=== PATIENT | female | born 2000 | race Caucasian/White ===

== ENCOUNTER 2020-04-08 10:00 | Emergency (ER) | payer OTHER, SELFPAY ==
--- NOTE | ~2020-04-08 | CT_ITS ---
EXAMINATION: CT abdomen pelvis wo con DATE: 04/08/2020 11:33 INDICATION: Low abdominal pain. Vomiting. TECHNIQUE: Computed tomography (CT) of the abdomen and pelvis was performed without intravenous contr ast. Automated exposure control and iterative reconstruction technique were employed. Exam dose: 376 .18 mGy-cm total exam DLP. COMPARISON: None. FINDINGS: The lung bases are clear. Normal heart size. No pericardial or pleural effusion. The liver, gallbladder, bile ducts, pancreas, pancreatic duct, spleen, adrenal glands and kidneys are unremarkable on this limited noncontrast examination. Normal caliber of the abdominal aorta. No intraperitoneal or retroperitoneal or pelvic mass lesion or adenopathy or ascites. Normal appendix. There is a prominent amount of fecal material within the rectum and colon but no bow el obstruction, bowel wall thickening, pneumatosis or intraperitoneal free air. Included skeletal structures are unremarkable. IMPRESSION: Prominent amount fecal material in rectum and colon; no evidence of bowel obstruction Reviewed, dictated and finalized at [facility]. Reviewed, dictated and finalized at [facility]. IMPRESSION: Prominent amount fecal material in rectum and colon; no evidence o f bowel obstruction
[2020-04-08 10:24] VITALS: BP 120/74; PULSE 70; RESP 18; TEMP 36.6; O2SAT 100
[2020-04-08] MEDS: SODIUM CHLORIDE 0.9% IV 1,000 ML 999 ML IV CONT (10:49)
[2020-04-08] MEDS: ONDANSETRON INJ 4 MG/2 ML VIAL IV PUSH (10:50)
[2020-04-08] MEDS: FAMOTIDINE 20 MG/2 ML VIAL IV PUSH (10:50)
--- NOTE | 2020-04-08 10:54 | ED.ABDPAIN ---
HPI - Abdominal Pain General Chief Complaint: Abdominal Pain <Sam Prabhakar PA-C - Last Filed: 04/08/20 12:17> Stated Complaint: abdominal pain/vomiting <MOHIT Antonio Last Filed: 04/08/20 12:17> Time Seen by Provider: 04/08/20 10:14 <Sam Prabhakar PA-C - Last Filed: 04/08/20 12:17> Source: patient and family <MOHIT Antonio Last Filed: 04/08/20 12:17> Mode of arrival: ambulatory <Sam Prabhakar PA-C - Last Filed: 04/08/20 12:17> Limitations: no limitations <MOHIT Antonio Last Filed: 04/08/20 12:17> History of Present Illness HPI narrative: Patient is a 20-year-old female who presents to emergency department for evaluation of lower abdominal pain that began yesterday has been taking Tylenol with minimal improvement notes that she is currently on her period and has had bad cramps before but this is different the pain goes through to the back and also had about 7 episodes of emesis today denies concern for STD or any vaginal discharge patient denies any fever chills <Sam Prabhakar PA-C - Last Filed: 04/08/20 12:17> Related Data Allergies/Adverse Reactions: Allergies Allergy/AdvReac Type Severity Reaction Status Date / Time nitrofurantoin Allergy Mild Unknown Verified 06/17/18 00:42 <Sam Prabhakar PA-C - Last Filed: 04/08/20 12:17> Review of Systems Review of Systems: All systems reviewed & are unremarkable except as noted in HPI and below <Sam Prabhakar PA-C - Last Filed: 04/08/20 12:17> PMFSH Social History Social History: Social History (Updated 04/08/20 @ 12:12 by Sam Prabhakar PA-C) Tobacco type: e-cigarettes/vaping Gender identity (if verbalized by the patient): Female <MOHIT Antonio Last Filed: 04/08/20 12:17> Exam Narrative: Exam Narrative: GENERAL: Well-appearing, well-nourished, and in no acute distress. HEAD: Normocephalic, atraumatic. EYES: PERRLA and EOMI. ENT: Nares clear, no rhinorrhea or epistaxis. Mucous membranes moist. CHEST: Clear to auscultation. No respiratory distress. No wheezes rales or rhonchi HEART: Regular rate and rhythm. No murmur heard. Normal peripheral pulses. ABDOMEN: Soft, suprapubic tenderness to palpation, nondistended EXTREMITIES: Normal range of motion. No edema. SKIN: Warm, dry, no rash. NEURO: No focal deficits. Alert and oriented x3. PSYCH: Normal mood and affect. <Sam Prabhakar PA-C - Last Filed: 04/08/20 12:17> Course Course Emergency Course: Patient in the room is been hydrated aware of imaging and lab results. Afebrile nontoxic-appearing no distress felt appropriate for outpatient reevaluation. Patient had improvement with medications and is resting in the room <Sam Prabhakar PA-C - Last Filed: 04/08/20 12:17> Vital Signs Vital signs: Vital Signs Temperature 97.8 F 04/08/20 10:24 Pulse Rate 70 04/08/20 10:24 Respiratory Rate 18 04/08/20 10:24 Blood Pressure 120/74 04/08/20 10:24 Pulse Oximetry 100 04/08/20 10:24 Temperature 97.8 F 04/08/20 10:24 Pulse Rate 70 04/08/20 10:24 Respiratory Rate 18 04/08/20 10:24 Blood Pressure 120/74 04/08/20 10:24 Pulse Oximetry 100 04/08/20 10:24 <MOHIT Antonio Last Filed: 04/08/20 12:17> Vital Signs Temperature 97.8 F 04/08/20 10:24 Pulse Rate 70 04/08/20 10:24 Respiratory Rate 18 04/08/20 10:24 Blood Pressure 120/74 04/08/20 10:24 Pulse Oximetry 100 04/08/20 10:24 Temperature 97.8 F 04/08/20 10:24 Pulse Rate 70 04/08/20 10:24 Respiratory Rate 18 04/08/20 10:24 Blood Pressure 120/74 04/08/20 10:24 Pulse Oximetry 100 04/08/20 10:24 <Emerald Iverson MD - Last Filed: 07/26/20 18:18> MDM - Abdominal Pain MDM Narrative Medical decision making narrative: Patient in the room in no distress no high risk changes in the blood work or imaging patient afebrile nontoxic-appearing feel
[2020-04-08 11:06] LABS: Basophils Percent Auto 0.2 % (0.2-1.2); Eosinophils Percent Auto 0.2 % (0-4.4); Hematocrit 41.4 % (37.0-47.0); Hemoglobin 13.5 g/dL (12.0-15.0); Immature Granulocyte Absolute 0.06 K/mm3 (0.00-0.031); Immature Granulocyte Percent A 0.5 % (0-0.5); Lymphocytes Absolute Auto 0.85 K/mm3 (0.9-3.2); Lymphocytes Percent Auto 6.4 % (18.3-44.2); Mean Corpuscular HGB Conc 32.6 g/dl (32-36); Mean Corpuscular Hemoglobin 30.8 pg (26-34); Mean Corpuscular Volume 94.5 fl (80-100); Monocytes Absolute Auto 0.5 K/mm3 (0.1-0.6); Monocytes Percent Auto 3.9 % (2.6-8.5); Neutrophils Absolute Auto 11.7 K/mm3 (1.3-6.7); Neutrophils Percent Auto 88.8 % (45.5-73.1); Platelet Count Result 212 k/mm3 (150-375); Red Blood Count 4.38 M/mm3 (4.2-5.4); Red Cell Distribution Width 12.6 % (11.5-14.5); White Blood Count 13.2 K/mm3 (4.5-10.0)
[2020-04-08 11:17] LABS: Alanine Aminotransferase 18 U/L (4-35); Alkaline Phosphatase 72 U/L (38-126); Anion Gap 11.9 mmol/L (7-16); Aspartate Amino Transferase 27 U/L (14-36); Bilirubin,Total 0.5 mg/dL (0.2-1.3); Blood Urea Nitrogen 8 mg/dL (7-17); Calcium 9.7 mg/dL (8.4-10.2); Carbon Dioxide 28 mmol/L (22-30); Chloride 103 mmol/L (98-107); Estimated CRCL calculation 124 ml/min; Estimated Glomerular Filt Rate > 60; Glucose 101 mg/dL (65-105); Lipase 68 U/L (23-300); Potassium 3.9 mmol/L (3.4-5.0); Sodium 139 mmol/L (137-145)
[2020-04-08 11:35] LABS: Add Urine Microscopic? YES; Appearance Urine Clear (Clear); Bilirubin Urine Negative (Negative); Blood Urine 1+ (Negative); Color Urine Straw (Yellow); Glucose Urine UA Negative (Negative); Ketones Urine Negative (Negative); Leukocyte Esterase Ur Negative LEU/UL (Negative); Nitrate Urine Negative (Negative); Protein Urine Negative (Negative); RBC Urine 0-2 /hpf (0-2); Specific Grav Ur 1.012 (1.001-1.035); Squamous Epithelial Cell Urine Rare /hpf (Few); Urobilinogen Urine Negative mg/dL (<2.0); WBC Urine 0-3 /hpf
[2020-04-08] MEDS: KETOROLAC 30 MG/ML VIAL (*BKC) IV PUSH (12:10)
== END 2020-04-08 12:36 | disposition home or self-care (01) ==
PROVIDERS: Emergency Provider General Practice; PCP Pediatrics
DX: K59.00 Constipation, unspecified (principal); F17.290 Nicotine dependence, other tobacco product, uncomplicated
CPT/HCPCS: 36415; 74176; 80053; 81001; 81025; 83690; 85025; 96365; 96375; 99284; J0131; J1885; J2405; J7030

== ENCOUNTER 2020-06-15 20:05 | Emergency (ER) | payer OTHER, SELFPAY ==
[2020-06-15 20:10] VITALS: BP 129/72; PULSE 90; RESP 16; TEMP 36.2; O2SAT 100
--- NOTE | 2020-06-15 20:12 | ED.FEMALEGU ---
HPI - Female Genitourinary General Chief complaint: Back Pain/Injury Stated complaint: kidney infection Time Seen by Provider: 06/15/20 20:12 History of Present Illness HPI Narrative: 20 yo female presents to the ED for UTI. She reports that she has had pain with urination for the past few days. Associated midline and bilateral lower back pain. No fever, nausea, vomiting. She has not tried anything for her symptoms. Related Data Allergies Allergy/AdvReac Type Severity Reaction Status Date / Time nitrofurantoin Allergy Mild Unknown Verified 06/15/20 20:13 Review of Systems Review of Systems: All systems reviewed & are unremarkable except as noted in HPI and below Constitutional: Constitutional: Denies chills Cardiovascular: Cardiovascular: Denies chest pain Respiratory: Respiratory: Denies dyspnea Gastrointestinal: Gastrointestinal: Denies nausea and Denies vomiting Genitourinary: Genitourinary: Denies hematuria, Reports nocturia and Reports dysuria Musculoskeletal: Musculoskeletal: Reports back pain Neurologic: Denies numbness and Denies weakness PMFSH Social History Social History Tobacco type: e-cigarettes/vaping Gender identity (if verbalized by the patient): Female Exam Const: General: healthy appearing, no acute distress and alert Orientation/consciousness: patient oriented x3 HENMT: Head: normal to inspection Chest: Chest palpation & inspection: normal inspection of the chest Resp: Effort & Inspection: normal respiratory effort Auscultation: clear to auscultation bilaterally Cardio: Rate: regular rate Rhythm: regular rhythm GI: GI Palp: Yes Soft to palpation and No Tenderness to palpation present (GI) Skin: General skin exam: normal color Neuro: General: patient oriented x3 and moves all extremities Speech: normal speech Extrem: General: normal to inspection Course Vital Signs Vital signs: Vital Signs Temperature 36.2 C L 06/15/20 20:10 Pulse Rate 90 06/15/20 20:10 Respiratory Rate 16 06/15/20 20:10 Blood Pressure 129/72 06/15/20 20:10 Pulse Oximetry 100 06/15/20 20:10 Temperature 36.2 C L 06/15/20 20:10 Pulse Rate 90 06/15/20 20:10 Respiratory Rate 16 06/15/20 20:10 Blood Pressure 129/72 06/15/20 20:10 Pulse Oximetry 100 06/15/20 20:10 MDM - Female Genitourinary MDM Narrative Medical decision making narrative: UA concerning for UTI. Clinically no concern for pyelonephritis. Differential Diagnosis Differential diagnosis: Likely urinary tract infection Medical Records Attestation: I reviewed the patient's medical records. Lab Data Attestation: I reviewed the patient's lab results. Result diagrams: 06/15/20 20:28 06/15/20 20:58 Labs: Lab Results 06/15/20 06/15/20 06/15/20 Range/Units 20:28 20:32 20:58 WBC 8.8 (4.5-10.0) K/mm3 RBC 4.26 (4.2-5.4) M/mm3 Hgb 13.3 (12.0-15.0) g/dL Hct 40.4 (37.0-47.0) % MCV 94.8 (80-100) fl MCH 31.2 (26-34) pg MCHC 32.9 (32-36) g/dl RDW 12.1 (11.5-14.5) % Plt Count 196 (150-375) k/mm3 MPV 11.7 H (7.4-10.4) fl Immature Gran % (Auto) 0.1 (0-0.5) % Neut % (Auto) 60.6 (45.5-73.1) % Lymph % (Auto) 31.3 (18.3-44.2) % [place] % (Auto) 6.8 (2.6-8.5) % Eos % (Auto) 0.7 (0-4.4) % Baso % (Auto) 0.5 (0.2-1.2) % Lymph # (Auto) 2.75 (0.9-3.2) K/mm3 [place] # (Auto) 0.6 (0.1-0.6) K/mm3 Eos # (Auto) 0.1 (0-0.3) K/mm3 Baso # (Auto) 0.0 (0.0-0.1) K/mm3 Abs Immat Gran (auto) 0.01 (0.00-0.031) K/mm3 Absolute Neuts (auto) 5.3 (1.3-6.7) K/mm3 Absolute Nucleated RBC 0.0 (0.0-0.012) K/mm3 Nucleated RBC % 0.0 (0.0-0.2) % Sodium 139 (137-145) mmol/L Potassium 3.6 (3.4-5.0) mmol/L Chloride 104 (98-107) mmol/L Carbon Dioxide 26 (22-30) mmol/L Anion Gap 9 (8-16) mmol/L BUN 12 (7-17) mg/dL Creatini
[2020-06-15 20:41] LABS: Basophils Percent Auto 0.5 % (0.2-1.2); Eosinophils Absolute Auto 0.1 K/mm3 (0-0.3); Eosinophils Percent Auto 0.7 % (0-4.4); Hematocrit 40.4 % (37.0-47.0); Hemoglobin 13.3 g/dL (12.0-15.0); Immature Granulocyte Absolute 0.01 K/mm3 (0.00-0.031); Immature Granulocyte Percent A 0.1 % (0-0.5); Lymphocytes Absolute Auto 2.75 K/mm3 (0.9-3.2); Lymphocytes Percent Auto 31.3 % (18.3-44.2); Mean Corpuscular HGB Conc 32.9 g/dl (32-36); Mean Corpuscular Hemoglobin 31.2 pg (26-34); Mean Corpuscular Volume 94.8 fl (80-100); Mean Platelet Volume 11.7 fl (7.4-10.4); Monocytes Absolute Auto 0.6 K/mm3 (0.1-0.6); Monocytes Percent Auto 6.8 % (2.6-8.5); Neutrophils Absolute Auto 5.3 K/mm3 (1.3-6.7); Neutrophils Percent Auto 60.6 % (45.5-73.1); Platelet Count Result 196 k/mm3 (150-375); Red Blood Count 4.26 M/mm3 (4.2-5.4); Red Cell Distribution Width 12.1 % (11.5-14.5); White Blood Count 8.8 K/mm3 (4.5-10.0)
[2020-06-15 20:51] LABS: Add Urine Microscopic? YES; Appearance Urine Clear (Clear); Bacteria Urine Trace /hpf; Bilirubin Urine Negative (Negative); Blood Urine Negative (Negative); Color Urine Straw (Yellow); Glucose Urine UA Negative (Negative); Ketones Urine Negative (Negative); Leukocyte Esterase Ur Trace LEU/UL (Negative); Mucus Urine Rare /lpf; Nitrate Urine Negative (Negative); Protein Urine Negative (Negative); RBC Urine 0-2 /hpf (0-2); Specific Grav Ur 1.014 (1.001-1.035); Squamous Epithelial Cell Urine Many /hpf (Few); WBC Urine 16-20 /hpf
[2020-06-15 21:13] LABS: Anion Gap 9 mmol/L (8-16); Blood Urea Nitrogen 12 mg/dL (7-17); Calcium 9.5 mg/dL (8.4-10.2); Carbon Dioxide 26 mmol/L (22-30); Chloride 104 mmol/L (98-107); Estimated CRCL calculation 107 ml/min; Estimated Glomerular Filt Rate > 60; Glucose 87 mg/dL (65-105); Potassium 3.6 mmol/L (3.4-5.0); Sodium 139 mmol/L (137-145)
[2020-06-15] MEDS: CIPROFLOXACIN 500 MG TAB PO (21:27)
== END 2020-06-15 21:33 | disposition home or self-care (01) ==
PROVIDERS: Emergency Provider Emergency Medicine; PCP Pediatrics
DX: N39.0 Urinary tract infection, site not specified (principal); S39.012A Strain of muscle, fascia and tendon of lower back, initial encounter; F17.290 Nicotine dependence, other tobacco product, uncomplicated; X58.XXXA Exposure to other specified factors, initial encounter
CPT/HCPCS: 36415; 80048; 81001; 81025; 85025; 87077; 87086; 87088; 99283; A9270

== ENCOUNTER 2020-12-11 10:11 | Emergency (ER) | payer OTHER, SELFPAY ==
[2020-12-11 10:17] VITALS: BP 121/82; PULSE 88; RESP 14; TEMP 36.7; O2SAT 100
--- NOTE | 2020-12-11 10:37 | ED.URI ---
HPI - URI/Sore Throat General Chief Complaint: Upper Respiratory Infection Stated Complaint: sore throat Time Seen by Provider: 12/11/20 10:30 Source: patient and RN notes reviewed Mode of arrival: ambulatory Limitations: no limitations History of Present Illness HPI Narrative: 20-year-old female presents with concern for sore throat she reports postnasal drainage, feeling of fluid in ears. She denies cough, shortness of breath, headache, body aches, chills, sweats, nausea, vomiting, diarrhea, loss of sense of taste or smell. She denies any intervention. MD elicited complaint: sore throat Related Data Home Medications Medication Instructions Recorded Confirmed norethindrone ac-eth estradiol 1 tablet PO DAILY 12/11/20 12/11/20 Allergies Allergy/AdvReac Type Severity Reaction Status Date / Time No Known Allergies Allergy Verified 12/11/20 10:28 Review of Systems Review of Systems: Narrative: CONSTITUTIONAL: Denies malaise, chills, sweats, or fever. EYES: Denies visual changes, redness, or discharge. ENT: Reports rhinorrhea, sore throat, otalgia. Denies congestion, sinus pain CARDIOVASCULAR: Denies chest pain, palpitations, or edema. RESPIRATORY: Denies cough or dyspnea. GASTROINTESTINAL: Denies abdominal pain, nausea, vomiting, diarrhea SKIN: Denies rash or itching. MUSCULOSKELETAL: Denies myalgia. NEUROLOGIC: Denies headache. All systems reviewed & are unremarkable except as noted in HPI and below PMFSH Social History Social History Tobacco type: e-cigarettes/vaping Gender identity (if verbalized by the patient): Female Comments At time of signature, agree with nursing past medical, surgical, social and family history. There is no relevant family history pertinent to the presenting complaint Exam Narrative: Exam Narrative: GENERAL: Well-appearing, well-nourished, and in no acute distress. HEAD: Normocephalic EYES: PERRLA, conjunctivae clear ENT: Nares clear, turbinates edematous and erythematous, clear discharge. Mucous membranes moist. TM pearly bland with dull light reflex bilaterally; no tragal tenderness. Oropharynx mildly erythematous without lesions. Tonsils mildly enlarged and without exudate, no drooling, no hoarseness, no trismus, uvula midline. NECK: Supple. No lymphadenopathy CHEST: Clear to auscultation, breath sounds equal. No wheezing, rhonchi, rales, or stridor. No respiratory distress, speaks in full sentences. HEART: Regular rate and rhythm. No murmur heard. SKIN: Warm, dry, no rash. NEURO: Alert and oriented x3. PSYCH: Normal mood and affect Course Course Emergency Course: Patient is aware of diagnosis, understands and agrees to treatment plan. Anticipatory guidance given. Patient agrees to follow-up as directed and is aware of reasons to seek care at the emergency department. Portions of this record may have been created with voice recognition software Vital Signs Vital signs: Vital Signs Temperature 98.0 F 12/11/20 10:17 Pulse Rate 88 12/11/20 10:17 Respiratory Rate 14 12/11/20 10:17 Blood Pressure 121/82 12/11/20 10:17 Pulse Oximetry 100 12/11/20 10:17 Temperature 98.0 F 12/11/20 10:17 Pulse Rate 88 12/11/20 10:17 Respiratory Rate 14 12/11/20 10:17 Blood Pressure 121/82 12/11/20 10:17 Pulse Oximetry 100 12/11/20 10:17 Reviewed. MDM - URI/Sore Throat MDM Narrative Medical decision making narrative: Differential diagnosis considered: Miller virus, strep pharyngitis, allergic rhinitis, upper respiratory tract infection, sinusitis, rhinosinusitis, nasopharyngitis. viral pharyngitis, otitis media, otitis externa, pneumonia, bronchitis, viral cough syndrome, viral syndrome, and influenza. Exam findings show no acute concerns or changes; patient is non-toxic appearing and is in no distress. Patient is appropriate for outpatient treatment and follow-up. Lab Data Labs: Strep Screen
[2020-12-12 16:23] LABS: SARS-CoV-2 RNA PCR Negative
== END 2020-12-11 10:49 | disposition home or self-care (01) ==
PROVIDERS: Emergency Provider Nurse Practitioner; PCP Pediatrics
DX: J06.9 Acute upper respiratory infection, unspecified (principal); Z20.828 Contact with and (suspected) exposure to other viral communicable diseases; F17.200 Nicotine dependence, unspecified, uncomplicated
CPT/HCPCS: 87081; 87880; 99213; C9803; G0463; U0003; U0005